=== PATIENT | male | born 1995 | race African-American/Black ===

== ENCOUNTER → 2020-07-01 | Outpatient (CLI) | payer MEDICAID | END | disposition home or self-care (01) | LOC: LAB 09:54 | PROVIDERS: ATTEND Surgery | DX: Z01.812 Encounter for preprocedural laboratory examination (principal); Z20.828 Contact with and (suspected) exposure to other viral communicable diseases | CPT/HCPCS: C9803; U0003 ==

== ENCOUNTER → 2020-07-03 | Day surgery (SDC) | payer MEDICAID ==
[~2020-07-03] VITALS: Ht 172.7 cm; Wt 86.2 kg
[~2020-07-03] MED LIST: BACITRACIN 50,000 UNITS/VIAL ONE; BUPIVACAINE HCL/PF 0.5% (5MG/ML) 10ML ONE; LACTATED RINGERS 1,000 ML IV SCH; SKIN ADHESIVE 0.7 GM EA TOP ONE
== END | disposition home or self-care (01) ==
LOC: OR 05:30
PROVIDERS: ATTEND Surgery
DX: S40.251A Superficial foreign body of right shoulder, initial encounter (principal); Z79.899 Other long term (current) drug therapy; X58.XXXA Exposure to other specified factors, initial encounter; Y93.89 Activity, other specified; Y92.89 Other specified places as the place of occurrence of the external cause; Y99.8 Other external cause status
CPT/HCPCS: 24200; 76000; J0330; J2250; J2405; J2704; J2765; J3010; J3490